=== PATIENT | male | born 1985 | race Caucasian/White ===

== ENCOUNTER 2016-07-20 18:52 | Emergency (ER) | payer OTHER ==
[~2016-07-20] VITALS: Ht 172.7 cm; Wt 81.6 kg
--- NOTE | 2016-07-20 18:56 | ED.ADGEN ---
Adult General Chief Complaint Chief Complaint " I was lifting and bar marsh came off and hit me in the nose.. I tried steri stip but it is still bleeding..." HPI HPI Patient is a 30 year old male who presents with above hx and complaints 1.5 cm laceration to bridge of nose. No loss of consciousness. No visual changes. Patient has a laceration to the level of bone. Patient up-to-date with vaccinations. No other injury reported. Patient follows at [facility]. Review of Systems Review of Systems Constitutional: Denies fever or chills [] Eyes: Denies change in visual acuity, redness, or eye pain [] HENT: Denies nasal congestion or sore throat [] Respiratory: Denies cough or shortness of breath [] Cardiovascular: No additional information not addressed in HPI [] GI: Denies abdominal pain, nausea, vomiting, bloody stools or diarrhea [] : Denies dysuria or hematuria [] Musculoskeletal: Denies back pain or joint pain [] Integument: Denies rash or skin lesions [] Neurologic: Denies headache, focal weakness or sensory changes [] Endocrine: Denies polyuria or polydipsia [] Family History Family History Noncontributory Current Medications Current Medications Current Medications Medications (Trade) Dose Ordered Sig/Teagan Start Time Stop Time Status Last Admin Dose Admin Bupivacaine HCl (Sensorcaine Mpf 0.5%) 30 ml 1X ONCE 07/20/16 20:30 07/20/16 20:30 DC Lidocaine HCl 20 ml 1X ONCE 07/20/16 20:30 07/20/16 20:30 DC Allergies Allergies Allergies Coded Allergies Type Severity Reaction Last Updated Verified No Known Drug Allergies 07/20/16 No Physical Exam Physical Exam Constitutional: Well developed, well nourished, moderate acute distress, non- toxic appearance. [] HENT: Normocephalic, 1.5 cm laceration to bridge of nose, bilateral external ears normal, oropharynx moist, no oral exudates, nose bridge edema] Eyes: PERRLA, EOMI, conjunctiva normal, no discharge. [] Neck: Normal range of motion, no tenderness, supple, no stridor. [] Cardiovascular:Heart rate regular rhythm, no murmur [] Lungs & Thorax: Bilateral breath sounds clear to auscultation [] Abdomen: Bowel sounds normal, soft, no tenderness, no masses, no pulsatile masses. [] Skin: Warm, dry, no erythema, no rash. [] Back: No tenderness, no CVA tenderness. [] Extremities: No tenderness, no cyanosis, no clubbing, ROM intact, no edema. [] Neurologic: Alert and oriented X 3, normal motor function, normal sensory function, no focal deficits noted. [] Psychologic: Affect normal, judgement normal, mood normal. [] Current Patient Data Vital Signs Vital Signs Date Time Temp Pulse Resp B/P Pulse Ox O2 Delivery O2 Flow Rate FiO2 07/20/16 19:45 98.5 67 18 98 Room Air EKG EKG [] Radiology/Procedures Radiology/Procedures [] Course & Med Decision Making Course & Med Decision Making Pertinent Labs and Imaging studies reviewed. (See chart for details) Suture note- area of laceration clean. Irrigated with normal saline. Placed 4x 6-0 Prolene simple sutures. Pt. to apply polysporin 4 x day until healed or A and D ointment. Expect a scar. Sutures out in 5 days. Elevated head tonight. Avoid direct shower water to laceration site. Steri-strip after sutures out. Avoid direct sun or sun burn. Expect increased ecchymosis. Return if any concerns. [] Final Impression Final Impression 1. Laceration- 1.5 cm bridge of nose[] Problems: Dragon Disclaimer Dragon Disclaimer This electronic medical record was generated, in whole or in part, using a voice recognition dictation system. WAYNE PASTOR MD Jul 20, 2016 18:56
[2016-07-20 19:45] VITALS: BP 120/72
[2016-07-20] MEDS ORDERED: MIRT15TA PO (20:06)
[2016-07-20] MEDS ORDERED: LIDOCAINE 2% 20 ML VIAL. IJ ONE (20:30)
[2016-07-20] MEDS ORDERED: BUPIVACAINE MPF 0.5% 30 ML VIAL. SQ ONE (20:30)
== END 2016-07-20 20:05 | disposition home or self-care (01) ==
LOC: ER 18:52
DX: S01.21XA Laceration without foreign body of nose, initial encounter (principal); W22.8XXA Striking against or struck by other objects, initial encounter; Y93.89 Activity, other specified; Y99.8 Other external cause status; Y92.89 Other specified places as the place of occurrence of the external cause
CPT/HCPCS: 12011; 99283-25